=== PATIENT | male | born 1965 | race Caucasian/White ===

== ENCOUNTER 2023-06-22 15:13 | Outpatient (AMB) | payer OTHER, SELFPAY ==
--- NOTE | 2023-06-22 15:34 | HO.NEPHOV_ITS ---
HPI HPI Comments History of Present Illness Details I had the privilege of seeing Mic in consultation for his labile hypertension. He was diagnosed with blood pressure couple of years ago and has been initiated on lisinopril. He does not check his blood pressure at home. He is not a diabetic. Recently his systolic blood pressure had gone up to 190 and he was started her on amlodipine as well. His blood pressure is better controlled now. He does not have history of hypokalemia, hypercalcemia, uncontrolled thyroid disorder, diarrhea but has been having excessive sweating. He is known to have multiple sclerosis. He is on medications for the same. He has no coronary artery disease, CVA, congestive heart failure, carotid stenosis, peripheral arterial disease, renal artery stenosis, renal function abnormalities. He claims to be compliant with medications. He has no history of drug use. His diet is rich in sodium. He did not have any active complaints at the time of this office visit. [facility] Medical History (Updated 06/23/23 @ 03:54 by Boy Alcazar MD) History of pancreatitis Flexor tenosynovitis of finger Biceps tendinitis Lumbar radiculopathy Lumbosacral radiculitis Patellofemoral stress syndrome BPH (benign prostatic hyperplasia) Bladder trabeculation Diverticulum of bladder GERD (gastroesophageal reflux disease) COPD (chronic obstructive pulmonary disease) [place] of lung Paralysis of vocal cords or larynx, unspecified Hearing loss Multiple sclerosis Restless leg syndrome Hypercholesterolemia Vitamin D deficiency Tubular adenoma of colon Essential (primary) hypertension Surgical History (Updated 06/22/23 @ 15:30 by Danna Rodriguez MA) H/O discectomy History of simple pterygium excision H/O vasectomy Family History (Updated 06/22/23 @ 15:39 by Danna Rodriguez MA) Mother Heart disease Diabetes Father Heart disease Pacemaker Social History (Updated 06/22/23 @ 15:40 by Danna Rodriguez MA) Alcohol intake: current Comment: Socially Patient Tobacco Use Status: Former Tobacco user Vital Signs 06/22/23 15:35 Height 6 ft 3 in Weight 214 lb 2 oz BMI 26.8 BP 124/72 Blood Pressure Location Lt brachial Position Sitting Pulse 72 Pulse Source Pulse Oximeter Pulse Oximetry (%) 96 Oxygen Delivery Method Room Air Physical Exam Vital Signs: Last Vital Signs Pulse 72 06/22/23 15:35 BP 124/72 06/22/23 15:35 Pulse Ox 96 12/18/23 15:35 Oxygen Delivery Method Room Air 06/22/23 15:35 BMI result Body Mass Index 26.8 Const General: comfortable and no acute distress Orientation/consciousness: patient oriented x3 HEENT Head: Yes normocephalic Mouth: Normal oral and palatal mucosa present Eyes EOM: EOMs intact bilaterally Neck Neck: Yes supple Resp Auscultation: clear to auscultation bilaterally Cardio Jugular venous distension: no JVD Rate: regular rate GI Palpation (GI): Soft to palpation Auscultation: normal bowel sounds General: Yes no CVA tenderness Back/Spine/Pelvis Back: no CVA tenderness Skin General skin exam: no rashes or lesions noted Neuro General: patient oriented x3 and moves all extremities Extrem General: Yes no pedal edema Assessment & Plan Assessment & Plan (1) Hypertension: Code(s): I10 - Essential (primary) hypertension Qualifiers: Hypertension type: primary hypertension Qualified Code(s): I10 - Essential (primary) hypertension Plan Mic has had diagnosis of hypertension for the last few years and has been on RICKEY-inhibitor. Recently he had been having spikes of high systolic readings close to 200. He is not known to have any renal artery stenosis, hypokalemia or CKD. His diet is rich in sodium. I ordered secondary workup. His blood pressure in the office today was at goal. After the workup, I shall do a 24 hour ambulatory blood pressure monitor. I will streamline his blood pressure medications based on evolving data. He has no history of end-organ damage. I did not make any medication changes today. All his questions were answered. Follow-up given. Orders: Orders US renal BI 06/22/23 I10 - Essential (primary) hypertension US renal doppler 06/22/23 I10 - Essential (primary) hypertension Aldosterone 06/22/23 I10 - Essential (primary) hypertension Metanephrines, Plasma 06/22/23 I10 - Essential (primary) hypertension Cortisol Random 06/22/23 I10 - Essential (primary) hypertension Aldosterone, 24Hr Urine 06/22/23 I10 - Essential (primary) hypertension Cortisol, Free 24Hr Urine 06/22/23 I10 - Essential (primary) hypertension Catecholamines, Frac., 24Ur 06/22/23 I10 - Essential (primary) hypertension Metanephrines, 24hr Urine 06/22/23 I10 - Essential (primary) hypertension Renin 06/22/23 I10 - Essential (primary) hypertension Aldost/Renin 06/22/23 I10 - Essential (primary) hypertension VMA 06/22/23 I10 - Essential (primary) hypertension Coding Level of Care Code New Pt Level 4 (76447) Diagnoses Primary hypertension I10 Hypertension type: primary hypertension Results Reviewed Nephrology Results: No Data to Display
[2023-06-22 15:35] VITALS: BP 124/72; PULSE 72; O2SAT 96; BMI 26.8
== END 2023-06-22 16:13 | disposition home or self-care (01) ==
PROVIDERS: PCP Pediatrics; Referring Provider Pediatrics; Visit Provider Internal Medicine Nephrology
DX: I10 Essential (primary) hypertension (principal)
CPT/HCPCS: 99204

== ENCOUNTER → 2023-06-22 15:13 | Outpatient (BNVA) | payer OTHER, SELFPAY | PROVIDERS: PCP Pediatrics; Referring Provider Pediatrics; Visit Provider Internal Medicine Nephrology ==

== ENCOUNTER 2023-08-04 07:46 | Outpatient (REF) | payer OTHER, SELFPAY ==
--- NOTE | ~2023-08-04 | US_ITS ---
EXAMINATION: US RETROPERITONEAL LIMITED (RENAL ONLY) Ultrasound renal Doppler CLINICAL INFORMATION: Essentially primary hypertension. COMPARISON: None available. TECHNIQUE: Routine retroperitoneal ultrasound of kidneys is performed. In addition duplex and coronal imaging of kidneys was performed. FINDINGS: RENAL ULTRASOUND: RIGHT KIDNEY: 11.6 x 5.1 x 6.5 cm (SAG x AP x TRV). The kidney is normal in size, contour, and echogenicity. Renal cortical thickness is normal. No calculi or focal parenchymal lesions. No hydronephrosis. LEFT KIDNEY: 12.3 x 5.9 x 6.0 cm (SAG x AP x TRV). The kidney is normal in size, contour, and echogenicity. Renal cortical thickness is normal. No calculi or focal parenchymal lesions. No hydronephrosis. RENAL DOPPLER ULTRASOUND , RIGHT KIDNEY: Renal artery velocity proximal segment measures 1 39 cm/second, midsegment measures 1 36 cm/second, distal segment measures 82.5 cm/second. ER measures 1.44. Average resistive index measures less than 0.80 and is normal. LEFT KIDNEY: Renal artery velocity proximal segment measures 77 cm/second, midsegment measures 1 47 cm/second, distal segment measures 88.5 cm/second. RAR measures 1.52. Average segmental resistive index measures less than 0.80. US/US renal BI IMPRESSION: Normal renal ultrasound. Normal renal Doppler imaging with no suspicion for renal artery stenosis.
--- NOTE | ~2023-08-04 | US_ITS ---
EXAMINATION: US RETROPERITONEAL LIMITED (RENAL ONLY) Ultrasound renal Doppler CLINICAL INFORMATION: Essentially primary hypertension. COMPARISON: None available. TECHNIQUE: Routine retroperitoneal ultrasound of kidneys is performed. In addition duplex and coronal imaging of kidneys was performed. FINDINGS: RENAL ULTRASOUND: RIGHT KIDNEY: 11.6 x 5.1 x 6.5 cm (SAG x AP x TRV). The kidney is normal in size, contour, and echogenicity. Renal cortical thickness is normal. No calculi or focal parenchymal lesions. No hydronephrosis. LEFT KIDNEY: 12.3 x 5.9 x 6.0 cm (SAG x AP x TRV). The kidney is normal in size, contour, and echogenicity. Renal cortical thickness is normal. No calculi or focal parenchymal lesions. No hydronephrosis. RENAL DOPPLER ULTRASOUND , RIGHT KIDNEY: Renal artery velocity proximal segment measures 1 39 cm/second, midsegment measures 1 36 cm/second, distal segment measures 82.5 cm/second. ER measures 1.44. Average resistive index measures less than 0.80 and is normal. LEFT KIDNEY: Renal artery velocity proximal segment measures 77 cm/second, midsegment measures 1 47 cm/second, distal segment measures 88.5 cm/second. RAR measures 1.52. Average segmental resistive index measures less than 0.80. US/US renal doppler IMPRESSION: Normal renal ultrasound. Normal renal Doppler imaging with no suspicion for renal artery stenosis.
[2023-08-04 10:17] LABS: Cortisol Random 15.4 ug/dL
[2023-08-09 12:55] LABS: Metanephrine, Free 81 pg/mL (<=57); Normetanephrines, Free 100 pg/mL (<=148); Total Metanephrine, Free 181 pg/mL (<=205)
[2023-08-11 13:13] LABS: Aldosterone/Renin Ratio 1.1 Ratio (0.9-28.9); Plasma Renin Activity 0.94 ng/mL/h (0.25-5.82)
[2023-08-13 17:54] LABS: Renin 0.95 ng/mL/h (0.25-5.82)
== END 2023-08-04 07:47 | disposition home or self-care (01) ==
LOC: HO.US 07:46
PROVIDERS: Visit Provider Internal Medicine Nephrology
DX: I10 Essential (primary) hypertension (principal)
CPT/HCPCS: 36415; 76775; 82088; 82533; 83835; 84244; 93975

== ENCOUNTER 2023-08-06 10:32 | Outpatient (AMB) | payer OTHER, SELFPAY ==
[2023-08-06 10:37] VITALS: BP 132/72; PULSE 78; O2SAT 98; BMI 26.9
--- NOTE | 2023-08-06 10:37 | HO.NEPHOV ---
HPI HPI Comments History of Present Illness Details I had the privilege of seeing Mic in follow up for his labile hypertension. He was diagnosed with blood pressure couple of years ago and has been initiated on lisinopril. He does not check his blood pressure at home. He is not a diabetic. Recently his systolic blood pressure had gone up to 190 and he was started her on amlodipine as well. His blood pressure is better controlled now. He does not have history of hypokalemia, hypercalcemia, uncontrolled thyroid disorder, diarrhea but has been having excessive sweating. He has H/O MS. He is on medications for the same. He has no coronary artery disease, CVA, congestive heart failure, carotid stenosis, peripheral arterial disease, renal artery stenosis, renal function abnormalities. He claims to be compliant with medications. He has no history of drug use. His diet is rich in sodium. He did not have any active complaints at the time of this office [facility] Medical History (Updated 06/23/23 @ 03:54 by Boy Alcazar MD) History of pancreatitis Flexor tenosynovitis of finger Biceps tendinitis Lumbar radiculopathy Lumbosacral radiculitis Patellofemoral stress syndrome BPH (benign prostatic hyperplasia) Bladder trabeculation Diverticulum of bladder GERD (gastroesophageal reflux disease) COPD (chronic obstructive pulmonary disease) [place] of lung Paralysis of vocal cords or larynx, unspecified Hearing loss Multiple sclerosis Restless leg syndrome Hypercholesterolemia Vitamin D deficiency Tubular adenoma of colon Essential (primary) hypertension Surgical History H/O discectomy History of simple pterygium excision H/O vasectomy Family History Mother Heart disease Diabetes Father Heart disease Pacemaker Social History Alcohol intake: current Comment: Socially Patient Tobacco Use Status: Former Tobacco user Vital Signs 08/06/23 10:37 Height 6 ft 3 in Weight 215 lb BMI 26.9 BP 132/72 Blood Pressure Location Lt brachial Position Sitting Pulse 78 Pulse Source Pulse Oximeter Pulse Oximetry (%) 98 Oxygen Delivery Method Room Air Physical Exam Vital Signs: Last Vital Signs Pulse 78 08/06/23 10:37 BP 132/72 08/06/23 10:37 Pulse Ox 98 08/06/23 10:37 Oxygen Delivery Method Room Air 08/06/23 10:37 BMI result Body Mass Index 26.9 Const General: comfortable and no acute distress Orientation/consciousness: patient oriented x3 HEENT Head: Yes normocephalic Mouth: Normal oral and palatal mucosa present Eyes EOM: EOMs intact bilaterally Neck Neck: Yes supple Resp Auscultation: clear to auscultation bilaterally Cardio Jugular venous distension: no JVD Rate: regular rate GI Palpation (GI): Soft to palpation Auscultation: normal bowel sounds General: Yes no CVA tenderness Back/Spine/Pelvis Back: no CVA tenderness Skin General skin exam: no rashes or lesions noted Neuro General: patient oriented x3 and moves all extremities Extrem General: Yes no pedal edema Assessment & Plan Assessment & Plan (1) Hypertension: Code(s): I10 - Essential (primary) hypertension Qualifiers: Hypertension type: primary hypertension Qualified Code(s): I10 - Essential (primary) hypertension Plan Mic has had diagnosis of hypertension for the last few years and has been on RICKEY-inhibitor. Recently he had been having spikes of high systolic readings close to 200. He is not known to have any renal artery stenosis, hypokalemia or CKD. His diet is rich in sodium. Cortisol has been normal. Rest of secondary workup is pending. His blood pressure in the office today was at goal. Renal USS and Doppler of renal arteries were normal. After the workup, I shall do a 24 hour ambulatory blood pressure monitor, if needed. He has no history of end-organ damage. I held his Amlodipine and asked him to take lisinopril 10 mg bid for a week followed by 20 mg AM. I ordered follow up renal functions and serum K. I did not make any other medication changes today. All his questions were answered. Follow-up given Orders: Orders Electrolytes Today I10 - Essential (primary) hypertension Creatinine Today I10 - Essential (primary) hypertension Protein Creatinine Ratio, Ur Today I10 - Essential (primary) hypertension Blood Urea Nitrogen Today I10 - Essential (primary) hypertension Medications: Changed From lisinopril 20 mg PO DAILY To lisinopril 20 mg (2 x 10 mg) PO DAILY 30 days 60 tabs 3RF Coding Level of Care Code Est Pt Level 4 (19206) Diagnoses Primary hypertension I10 Hypertension type: primary hypertension Results Reviewed Nephrology Results: Renal US 08/04/23
== END 2023-08-06 11:11 | disposition home or self-care (01) ==
PROVIDERS: PCP Pediatrics; Visit Provider Internal Medicine Nephrology
DX: I10 Essential (primary) hypertension (principal)
CPT/HCPCS: 99214

== ENCOUNTER → 2023-08-06 10:32 | Outpatient (BNVA) | payer OTHER, SELFPAY | PROVIDERS: PCP Pediatrics; Visit Provider Internal Medicine Nephrology ==

== ENCOUNTER 2023-08-10 09:47 | Outpatient (REF) | payer OTHER, SELFPAY ==
[2023-08-16] LABS: Aldosterone, 24Hr Urine <0.6 mcg/24 h; Total Volume 1225 mL
[2023-08-16 03:34] LABS: Metanephrine, Free 24U 210 mcg/24 h (90-315); Normetanephrine, Free 24U 391 mcg/24 h (122-676); Total Metanephrine, Free 24U 601 mcg/24 h (224-832); Total Volume 24U 1225 mL
[2023-08-17 17:28] LABS: Cortisol Free, 24 Hr Urine 16.1 mcg/24 h (4.0-50.0); Creatinine, 24 Hr Urine 1.71 g/24 h (0.50-2.15); Total Volume, 24 Hr Urine 1225 mL
[2023-08-26 22:43] LABS: CATF, 24 Ur Volume 1225 mL; CATF-24Ur Creatinine 1.67 g/24 h (0.50-2.15); Catecholamines,Tot. (E+NE) 24U 50 mcg/24 h (26-121); Dopamine, 24 Ur 244 mcg/24 h (52-480); Norepinephrine, 24 Ur 50 mcg/24 h (15-100)
== END 2023-08-10 09:48 | disposition home or self-care (01) ==
LOC: HO.LNP 09:47
PROVIDERS: Visit Provider Internal Medicine Nephrology
DX: I10 Essential (primary) hypertension (principal)
CPT/HCPCS: 82088; 82384; 82530; 83835

== ENCOUNTER 2023-11-05 16:22 | Outpatient (AMB) | payer OTHER, SELFPAY ==
--- NOTE | 2023-11-05 16:24 | HO.NEPHOV_ITS ---
Vital Signs 11/05/23 16:25 Height 6 ft 3 in Weight 214 lb 4 oz BMI 26.8 BP 130/70 Blood Pressure Location Lt brachial Position Sitting Pulse 79 Pulse Source Pulse Oximeter Pulse Oximetry (%) 94 Oxygen Delivery Method Room Air Intake Visit Reasons: 2 mon follow up/ Confirmed Vulcanizer Operator Required: No Accompanied by: Self / Same As Patient Allergies No Known Allergies Allergy (Verified 11/05/23 16:27) HPI Comments Details: I had the privilege of seeing Mic in follow up for his labile hypertension. He was diagnosed with blood pressure couple of years ago and has been initiated on lisinopril. He does not check his blood pressure at home. He is not a diabetic. Recently his systolic blood pressure had gone up to 190 and he was started her on amlodipine as well. His blood pressure is better controlled now. He does not have history of hypokalemia, hypercalcemia, uncontrolled thyroid disorder, diarrhea but has been having excessive sweating. He has H/O MS. He is on medications for the same. He has no coronary artery disease, CVA, congestive heart failure, carotid stenosis, peripheral arterial disease, renal artery stenosis, renal function abnormalities. He claims to be compliant with medications. He has no history of drug use. His diet is rich in sodium. He did not have any active complaints at the time of this office visit [facility] Medical History (Updated 06/23/23 @ 03:54 by Boy Alcazar MD) History of pancreatitis Flexor tenosynovitis of finger Biceps tendinitis Lumbar radiculopathy Lumbosacral radiculitis Patellofemoral stress syndrome BPH (benign prostatic hyperplasia) Bladder trabeculation Diverticulum of bladder GERD (gastroesophageal reflux disease) COPD (chronic obstructive pulmonary disease) [place] of lung Paralysis of vocal cords or larynx, unspecified Hearing loss Multiple sclerosis Restless leg syndrome Hypercholesterolemia Vitamin D deficiency Tubular adenoma of colon Essential (primary) hypertension Surgical History H/O discectomy History of simple pterygium excision H/O vasectomy Family History Mother Heart disease Diabetes Father Heart disease Pacemaker Social History Alcohol intake: current Comment: Socially Patient Tobacco Use Status: Former Tobacco user Physical Exam Const General: comfortable and no acute distress Orientation/consciousness: patient oriented x3 HEENT Head: Yes normocephalic Mouth: Normal oral and palatal mucosa present Eyes EOM: EOMs intact bilaterally Neck Neck: Yes supple Resp Auscultation: clear to auscultation bilaterally Cardio Jugular venous distension: no JVD Rate: regular rate GI Palpation (GI): Soft to palpation Auscultation: normal bowel sounds General: Yes no CVA tenderness Back/Spine/Pelvis Back: no CVA tenderness Skin General skin exam: no rashes or lesions noted Neuro General: patient oriented x3 and moves all extremities Extrem General: Yes no pedal edema Results Reviewed Nephrology Results: Renal US 08/04/23 Assessment & Plan Assessment & Plan (1) Hypertension: Code(s): I10 - Essential (primary) hypertension Category: Medical Qualifiers: Hypertension type: primary hypertension Qualified Code(s): I10 - Essential (primary) hypertension Plan Mic has had diagnosis of hypertension for the last few years and has been on RICKEY-inhibitor. Recently he had been having spikes of high systolic readings close to 200. He is not known to have any renal artery stenosis, hypokalemia or CKD. His diet is rich in sodium. Cortisol has been normal. Rest of secondary workup was normal. His blood pressure in the office today was at goal. Renal USS and Doppler of renal arteries were normal. After the workup, I shall do a 24 hour ambulatory blood pressure monitor, if needed. He has no history of end- organ damage. At the last visit, I held his Amlodipine and asked him to take lisinopril 20 mg AM. His BP is at goal now. I did not make any other medication changes today. All his questions were answered. Follow-up given Orders: Orders Creatinine Today I10 - Essential (primary) hypertension Electrolytes Today I10 - Essential (primary) hypertension Blood Urea Nitrogen Today I10 - Essential (primary) hypertension Medications: Changed From lisinopril 20 mg (2 x 10 mg) PO DAILY 30 days 60 tabs 3RF To lisinopril 20 mg PO DAILY 90 days 90 tabs 3RF Coding Level of Care Code Est Pt Level 4 (05602) Diagnoses Primary hypertension I10 Hypertension type: primary hypertension
[2023-11-05 16:25] VITALS: BP 130/70; PULSE 79; O2SAT 94; BMI 26.8
== END 2023-11-05 16:44 | disposition home or self-care (01) ==
LOC: HO.HKAS 16:22
PROVIDERS: PCP Pediatrics; Visit Provider Internal Medicine Nephrology
DX: I10 Essential (primary) hypertension (principal)
CPT/HCPCS: 99214

== ENCOUNTER → 2023-11-05 16:22 | Outpatient (BNVA) | payer OTHER, SELFPAY | PROVIDERS: PCP Pediatrics; Visit Provider Internal Medicine Nephrology ==